=== PATIENT | female | born 1995 | race Caucasian/White ===

== ENCOUNTER 2017-02-08 07:56 | Emergency (ER) | payer OTHER ==
[2017-02-08] MEDS ORDERED: Zofran 4 MG/2 ML VIAL IV ONE (08:19)
[2017-02-08] MEDS ORDERED: Sodium Chloride 0.9% 1000 ML 1,000 ML IV SCH (08:30)
--- NOTE | 2017-02-08 08:30 | ERPHSYRPT ---
- History of Present Illness Time Seen by Provider: 02/08/17 08:15 Historian: patient Exam Limitations: clinical condition Patient Subjective Stated Complaint: PT REPORTS LOW RIGHT ABD PAIN BEGINNING RIGO 4 TO 5 HRS AGO-STATES THAT PAIN RADIATES TO HER BACK-REPORTS A CLEAR FOUL SMELLING VAGINAL DISCHARGE-DENIES DIFFICULTY WITH URIANTION Triage Nursing Assessment: PT PINK WARM ET DRY-ABD NONTENDER TO PALP-PT DENIES REBOUND TENDERNESS-BOWEL SOUNDS PRESENT-RESP EASY ET NONLABORED Physician History: PATIENT HISTORY OF SVT, COMPLAINS OF FREQUENCY OF URINATION, URGENCY OVER THE PAST 2 DAYS, ONSET OF RIGHT LOWER ABDOMINAL PAINS OVER 5 HOURS ASSOCIATED WITH A VAGINAL DISCHARGE. DENIES FEVER, NAUSEA OR EMESIS. Timing/Duration: yesterday Activities at Onset: none Quality: sharpness Abdominal Pain Onset Location: RLQ Pain Radiation: no radiation Severity of Pain-Max: moderate Severity of Pain-Current: moderate Modifying Factors: Improves With: nothing, urinating Previous symptoms: no prior history Allergies/Adverse Reactions: penicillin G Allergy (Intermediate, Verified 02/08/17 08:11) Hives Home Medications: No Home Meds 1 ea UD 02/08/17 [History] Hx Tetanus, Diphtheria Vaccination/Date Given: No Hx Influenza Vaccination/Date Given: No Hx Pneumococcal Vaccination/Date Given: No Immunizations Up to Date: Yes - Review of Systems Constitutional: No Fever, No Chills Eyes: No Symptoms Ears, Nose, & Throat: No Symptoms Respiratory: No Symptoms, No Cough, No Dyspnea Cardiac: No Chest Pain, No Edema, No Syncope Abdominal/Gastrointestinal: Abdominal Pain, No Nausea, No Vomiting, No Diarrhea Genitourinary Symptoms: Frequency, Urgency, Vaginal Discharge, No Dysuria Musculoskeletal: No Symptoms, No Back Pain, No Neck Pain Skin: No Rash Neurological: No Dizziness, No Focal Weakness, No Sensory Changes Psychological: No Symptoms Endocrine: No Symptoms All Other Systems: Reviewed and Negative - Past Medical History Pertinent Past Medical History: No Cardiac History: Arrhythmia (SVT) - Past Surgical History Past Surgical History: Yes - Social History Smoking Status: Current every day smoker How long have you smoked: YRS Exposure to second hand smoke: Yes Drug Use: none Patient Lives Alone: No - Female History Hx Last Menstrual Period: DEPO - Nursing Vital Signs Nursing Vital Signs: Initial Vital Signs Temperature 98.1 F Temperature Source Oral Pulse Rate 86 Respiratory Rate 22 Blood Pressure [Right Arm] 118/68 Pain Intensity 2 - Physical Exam General Appearance: no apparent distress, alert Eye Exam: PERRL/EOMI, eyes nml inspection Ears, Nose, Throat Exam: normal ENT inspection, pharynx normal, moist mucous membranes Neck Exam: normal inspection, non-tender, supple, full range of motion Respiratory Exam: normal breath sounds, lungs clear, No respiratory distress Cardiovascular Exam: regular rate/rhythm, normal heart sounds Gastrointestinal/Abdomen Exam: soft, normal bowel sounds, tenderness (RLQ TENDERNESS, NO GUARDING), No mass Pelvic Exam: normal external exam, vaginal discharge (THERE IS NO BLOOD IN THE VAGINAL VAULT, RIGHT ADNEXA TENDERNESS, NO CERVICAL MOTION TENDERNESS, NORMAL UTERINE SIZE) Back Exam: normal inspection, normal range of motion, CVA tenderness (RIGHT CVA TENDERNESS MODERATE), No vertebral tenderness Extremity Exam: normal inspection, normal range of motion, pelvis stable Neurologic Exam: alert, oriented x 3, cooperative, normal mood/affect, nml cerebellar function, sensation nml, No motor deficits Skin Exam: normal color, warm, dry SpO2 Interpretation: normal SpO2: 100 Oxygen Delivery: Room Air - CT Exams Abdomen/Pelvis CT Interpretation: Discussed w/radiologist (THERE IS AN ABNORMAL UTERUS WITH NUMEROUS MYOMETRIAL SERPIGINOUS/TORTUOUS VESSELS AND BILATERALY DISTENDED OVARIAN VEINS. R/O UTERINE AV MALFORMATION VERSUS PELVIC CONGESTION SYNDROME) Ordered Tests: Active Orders 24 hr Category Date Time Status Clean Catch Urine Specimen STAT Care 02/08/17 08:19 Active IV Insertion STAT Care 02/08/17 08:19 Active Pelvic Exam Assist STAT Care 02/08/17 08:48 Active ABDOMEN AND PELVIS W CONTRAST [CT] Stat Exams 02/08/17 08:20 Completed AMYLASE Stat Lab 02/08/17 08:30 Completed BLOOD CULTURE Stat Lab 02/08/17 08:35 Received BMP Stat Lab 02/08/17 08:30 Completed CBC W DIFF Stat Lab 02/08/17 08:30 Completed CULTURE,URINE Stat Lab 02/08/17 08:30 Received HCG,QUALITATIVE URINE Stat Lab 02/08/17 08:47 Completed LIPASE Stat Lab 02/08/17 08:30 Completed UA W/ MICROSCOPIC Stat Lab 02/08/17 08:30 Completed Wet Prep Stat Lab 02/08/17 08:30 Completed Medication Summary Generic Name Dose Route Start Last Admin Trade Name Freq PRN Reason Stop Dose Admin Sodium Chloride 1,000 mls @ 500 mls/hr 02/08/17 08:30 02/08/17 08:41 Sodium Chloride 0.9% 1000 Ml IV 03/10/17 08:29 500 mls/hr .Q2H PHILIP Administration Discontinued Medications Generic Name Dose Route Start Last Admin Trade Name Keely PRN Reason Stop Dose Admin Fentanyl Citrate 100 mcg 02/08/17 08:45 02/08/17 08:53 Sublimaze 100 Mcg/2 Ml IV 02/08/17 08:46 100 mcg STAT ONE Administration Fentanyl Citrate Confirm 02/08/17 08:50 Sublimaze 100 Mcg/2 Ml Administered 02/08/17 08:51 Dose 100 mcg .ROUTE .STK-MED ONE Sodium Chloride Confirm 02/08/17 08:37 Sodium Chloride 0.9% 1000 Ml Administered 02/08/17 08:38 Dose 1,000 mls @ ud .ROUTE .STK-MED ONE Sodium Chloride Confirm 02/08/17 08:50 Sodium Chloride 0.9% 1000 Ml Administered 02/08/17 08:51 Dose 1,000 mls @ ud .ROUTE .STK-MED ONE Ondansetron HCl 4 mg 02/08/17 08:19 02/08/17 08:41 Zofran 4 Mg/2 Ml Vial IV 02/08/17 08:20 4 mg STAT ONE Administration Ondansetron HCl Confirm 02/08/17 08:37 Zofran 4 Mg/2 Ml Vial Administered 02/08/17 08:38 Dose 4 mg .ROUTE .STK-MED ONE Lab/Rad Data: Laboratory Result Diagrams 02/08/17 08:30 02/08/17 08:30 Laboratory Results 02/08/17 02/08/17 02/08/17 Range/Units 08:47 08:30 08:30 WBC (4.0-10.5) K/mm3 RBC (4.1-5.4) M/mm3 Hgb (12.0-16.0) gm/dl Hct (35-47) % MCV (78-100) fl MCH (26-32) pg MCHC (32-36) g/dl RDW (11.5-14.0) % Plt Count (150-450) K/mm3 MPV (6-9.5) fl Gran % (36.0-66.0) % Lymphocytes % (24.0-44.0) % Monocytes % (0.0-12.0) % Eosinophils % (0.00-5.0) % Basophils % (0.0-0.4) % Basophils # (0-0.4) Sodium 145 (136-145) mEq/L Potassium 3.3 L (3.5-5.1) mEq/L Chloride 109 H (98-107) mEq/L Carbon Dioxide 26.3 (21-32) mEq/L Anion Gap 13.3 (5-15) MEQ/L BUN 10 (9-20) mg/dL Creatinine 0.86 (0.55-1.30) mg/dl Estimated GFR > 60 ML/MIN Glucose 95 (70-110) MG/DL Calcium 9.1 (8.5-10.1) mg/dL Amylase 48 (25-115) U/L Lipase 159 (73-393) U/L Ur Collection Type VOID Urine Color YELLOW (YELLOW) Urine Appearance CLEAR (CLEAR) Urine pH 6.0 (5-6) Ur Specific [place] 1.015 (1.005-1.025) Urine Protein NEGATIVE (Negative) Urine Glucose (UA) NEGATIVE (NEGATIVE) mg/dL Urine Ketones NEGATIVE (NEGATIVE) Urine Nitrite NEGATIVE (NEGATIVE) Urine Bilirubin NEGATIVE (NEGATIVE) Urine Urobilinogen 0.2 (0-1) mg/dL Urine WBC (Auto) TRACE (NEGATIVE) Urine RBC (Auto) NEGATIVE (0-5) Kaiden/ul Urine Microscopic WBC 2-5 (0-5) /HPF Ur Epithelial Cells FEW (FEW) /HPF Urine Bacteria FEW (NEGATIVE) /HPF Urine HCG, Qual NEGATIVE (Negative) WBC (Wet Prep) Rare RBC (Wet Prep) None Seen Epi Cells (Wet Prep) Rare Bacteria (Wet Prep) Rare Clue Cells (Wet Prep) None Seen Trichomonas (Wet Prep) None Seen Budding Yeast (Wet Prp) None Seen Chlamydia DNA (LCR) N.gonorrhoeae Ampl DNA Specimen Received 02/08/17 0820 02/08/17 02/08/17 Range/Units 08:30 08:19 WBC 9.8 (4.0-10.5) K/mm3 RBC 5.11 (4.1-5.4) M/mm3 Hgb 15.1 (12.0-16.0) gm/dl Hct 44.5 (35-47) % MCV 87.1 (78-100) fl MCH 29.5 (26-32) pg MCHC 33.9 (32-36) g/dl RDW 12.9 (11.5-14.0) % Plt Count 313 (150-450) K/mm3 MPV 9.9 H (6-9.5) fl Gran % 54.9 (36.0-66.0) % Lymphocytes % 35.6 (24.0-44.0) % Monocytes % 6.7 (0.0-12.0) % Eosinophils % 2.0 (0.00-5.0) % Basophils % 0.8 (0.0-0.4) % Basophils # 0.08 (0-0.4) Sodium (136-145) mEq/L Potassium (3.5-5.1) mEq/L Chloride (98-107) mEq/L Carbon Dioxide (21-32) mEq/L Anion Gap (5-15) MEQ/L BUN (9-20) mg/dL Creatinine (0.55-1.30) mg/dl Estimated GFR ML/MIN Glucose (70-110) MG/DL Calcium (8.5-10.1) mg/dL Amylase (25-115) U/L Lipase (73-393) U/L Ur Collection Type Urine Color (YELLOW) Urine Appearance (CLEAR) Urine pH (5-6) Ur Specific [place] (1.005-1.025) Urine Protein (Negative) Urine Glucose (UA) (NEGATIVE) mg/dL Urine Ketones (NEGATIVE) Urine Nitrite (NEGATIVE) Urine Bilirubin (NEGATIVE) Urine Urobilinogen (0-1) mg/dL Urine WBC (Auto) (NEGATIVE) Urine RBC (Auto) (0-5) Kaiden/ul Urine Microscopic WBC (0-5) /HPF Ur Epithelial Cells (FEW) /HPF Urine Bacteria (NEGATIVE) /HPF Urine HCG, Qual (Negative) WBC (Wet Prep) RBC (Wet Prep) Epi Cells (Wet Prep) Bacteria (Wet Prep) Clue Cells (Wet Prep) Trichomonas (Wet Prep) Budding Yeast (Wet Prp) Chlamydia DNA (LCR) NEGATIVE N.gonorrhoeae Ampl DNA NEGATIVE Specimen Received - Progress Progress: improved Progress Note: 02/08/17 08:31 PATIENT GIVEN IV NORMAL SALINE 500LML/HR. ZOFRAN 4MG, FENTANYL 0.1MG IV 02/08/17 11:19 PATIENT ADMITS TO HAVING PELVIC PAIN FOR YEARS Counseled pt/family regarding: lab results, diagnosis, need for follow-up - Departure Time of Disposition: 11:22 Departure Disposition: Home Clinical Impression: PELVIC PAIN, PELVIC CONGESTION SYNDROME Condition: Stable Critical Care Time: No Additional Instructions: CALL YOUR FAMILY PHYSICIAN TODAY TO SCHEDULE A FOLLOWUP APPOINTMENT FOR EVALUATION, TREATMENT AND REVIEW OF CT SCAN RESULTS. TORADOL 10MG EVERY 6 HOURS FOR MILD TO MODERATE PAIN. NORCO 10/325 EVERY 4 HOURS FOR SEVERE PAIN. Prescriptions: Hydrocodone/APAP 10/325 mg [[place] 10/325 MG Tablet] 1 tab PO Q4H PRN PRN # 16 tablet PRN Reason: Pain Ketorolac Tromethamine [Toradol] 10 mg PO Q6H PRN PRN #20 tablet PRN Reason: Pain
[2017-02-08] MEDS ORDERED: Sodium Chloride 0.9% 1000 ML 1,000 ML ONE (08:37)
[2017-02-08] MEDS ORDERED: Zofran 4 MG/2 ML VIAL ONE (08:37)
[2017-02-08] MEDS ORDERED: SUBLIMAZE 100 MCG/2 ML IV ONE (08:45)
[2017-02-08 08:48] LABS: BASOPHIL % 0.8 % (0.0-0.4); Granulocytes % 54.9 % (36.0-66.0); Lymphocytes % 35.6 % (24.0-44.0); Mean Cell Volume 87.1 fl (78-100); Mean Corpuscular Hemoglobin 29.5 pg (26-32); Mean Platelet Volume 9.9 fl (6-9.5); Monocytes % 6.7 % (0.0-12.0); Platelet Count 313 K/mm3 (150-450); Red Blood Count 5.11 M/mm3 (4.1-5.4); Red Cell Distribution Width 12.9 % (11.5-14.0); White Blood Count 9.8 K/mm3 (4.0-10.5)
[2017-02-08] MEDS ORDERED: SUBLIMAZE 100 MCG/2 ML ONE (08:50)
[2017-02-08] MEDS ORDERED: Sodium Chloride 0.9% 1000 ML 0 ML ONE (08:50)
[2017-02-08 09:13] LABS: ANION GAP 13.3 MEQ/L (5-15); BLOOD UREA NITROGEN 10 mg/dL (9-20); CHLORIDE 109 mEq/L (98-107); Carbon Dioxide 26.3 mEq/L (21-32); Glucose 95 MG/DL (70-110); LIPASE 159 U/L (73-393); Potassium 3.3 mEq/L (3.5-5.1); SODIUM 145 mEq/L (136-145)
[2017-02-08 09:14] LABS: Bacteria FEW /HPF (NEGATIVE); COMPLETE URINE MICROSCOPIC? YES; Collection Type VOID; Epithelial Cells FEW /HPF (FEW)
[2017-02-08 09:15] LABS: Bacteria Rare; Clue Cells None Seen; Trichomonas None Seen; Yeast None Seen
[2017-02-08 10:49] LABS: CHLAMYDIA DNA NEGATIVE
--- NOTE | 2017-02-08 10:56 | XRAY ---
Indication: Right lower quadrant pain. Multiple contiguous axial images obtained through the abdomen and pelvis using 80 cc Isovue 370 contrast only. Comparison: None Lung bases demonstrates partially visualized 5 mm nodule on the left probably granulomatous in this demographic. No infiltrate, consolidation, or effusion. Heart is not enlarged. Noncontrasted stomach and bowel loops appear nonobstructed. Appendix not seen. No free fluid/air. Myometrium of the uterus demonstrates numerous serpiginous/tortuous vessels. Both ovarian veins are also abnormally dilated up to 7 mm. Primary concern is for uterine arteriovenous malformation versus pelvic congestion syndrome. Remaining liver, gallbladder, pancreas, spleen, adrenal glands, kidneys, ureters, bladder, and aorta appear normal in CT appearance and attenuation. No pathologic retroperitoneal lymphadenopathy. Osseous structures intact. Impression: 1. Abnormal uterus with numerous myometrial serpiginous/tortuous vessels and bilaterally distended ovarian veins. Rule out uterine AV malformation versus pelvic congestion syndrome. 2. Incompletely visualized 5 mm nodule in the left lung base probably granulomatous in this demographic. CTDI 8.07
[2017-02-08 11:32] VITALS: BP 110/64; PULSE 81; O2SAT 98
== END 2017-02-08 11:31 | disposition home or self-care (01) ==
LOC: ED 07:56
DX: R10.2 Pelvic and perineal pain (principal); N94.89 Other specified conditions associated with female genital organs and menstrual cycle; R10.31 Right lower quadrant pain; N89.8 Other specified noninflammatory disorders of vagina; R39.15 Urgency of urination; R35.0 Frequency of micturition; Z72.0 Tobacco use
CPT/HCPCS: 36000; 36415; 74177; 80048; 81000; 82150; 83690; 84703; 85025; 87040; 87086; 87210; 87490; 87590; 96360; 96361; 96374; 96375; 99285; J2405; J3010

== ENCOUNTER 2019-06-02 23:03 | Emergency (ER) | payer OTHER ==
--- NOTE | 2019-06-02 23:21 | ERPHSYRPT ---
- History of Present Illness Time Seen by Provider: 06/02/19 23:10 Source: patient, EMS Exam Limitations: clinical condition Physician History: 23 y/o white female presents with sudden onset of throat tightening, coughing, gagging then vomiting. pt thinks she may have aspirated. pt was on bowel prep for a colonoscopy tomorrow. no other known exposures. pt is a smoker. ems called. upon arrival pt was wheezing and coughing. pts room air oxygenation was 82%. EMS placed an IV, gave epinephrine, albuterol neb tx, solumedrol, and benadryl. sx improved but still anxious and shaking. Timing/Duration: today Activities at Onset: none Severity of Dyspnea-Max: moderate Severity of Dyspnea-Current: moderate Possible Cause: no prior episodes Modifying Factors: Improves With: albuterol nebulizer, coughing, oxygen Associated Symptoms: anxiety, cough, wheezing Allergies/Adverse Reactions: penicillin G Allergy (Intermediate, Verified 06/02/19 23:28) Hives Hx Tetanus, Diphtheria Vaccination/Date Given: No Hx Influenza Vaccination/Date Given: No Hx Pneumococcal Vaccination/Date Given: No - Review of Systems Constitutional: No Symptoms Eyes: No Symptoms Ears, Nose, & Throat: No Symptoms Respiratory: Dyspnea, Wheezing Cardiac: No Symptoms, No Chest Pain Abdominal/Gastrointestinal: No Symptoms, Vomiting, No Abdominal Pain, No Nausea Genitourinary Symptoms: No Symptoms Musculoskeletal: No Symptoms Skin: No Symptoms Neurological: No Symptoms Psychological: No Symptoms Endocrine: No Symptoms Hematologic/Lymphatic: No Symptoms Immunological/Allergic: No Symptoms All Other Systems: Reviewed and Negative - Past Medical History Pertinent Past Medical History: No Neurological History: No Pertinent History ENT History: No Pertinent History Cardiac History: Arrhythmia (SVT) Respiratory History: No Pertinent History Endocrine Medical History: No Pertinent History Musculoskeletal History: No Pertinent History GI Medical History: No Pertinent History History: No Pertinent History Psycho-Social History: No Pertinent History Female Reproductive Disorders: No Pertinent History - Past Surgical History Past Surgical History: Yes Neuro Surgical History: No Pertinent History Cardiac: No Pertinent History Respiratory: No Pertinent History Gastrointestinal: No Pertinent History Genitourinary: No Pertinent History Musculoskeletal: No Pertinent History Female Surgical History: No Pertinent History - Social History Smoking Status: Current every day smoker How long have you smoked: YRS Exposure to second hand smoke: Yes Drug Use: none Patient Lives Alone: No - Nursing Vital Signs Nursing Vital Signs: Initial Vital Signs Temperature 97.9 F 06/02/19 23:04 Pulse Rate 90 06/02/19 23:04 Respiratory Rate 20 06/02/19 23:04 Blood Pressure 133/77 06/02/19 23:04 O2 Sat by Pulse Oximetry 95 06/02/19 23:04 Pain Scale Pain Intensity 2 - Physical Exam General Appearance: mild distress, alert, anxiety, thin Eye Exam: PERRL/EOMI, eyes nml inspection Ears, Nose, Throat Exam: hearing grossly normal, normal ENT inspection Neck Exam: normal inspection, non-tender, supple, full range of motion Respiratory Exam: normal breath sounds, lungs clear, airway intact, No chest tenderness, No respiratory distress Cardiovascular/Chest Exam: normal heart sounds, regular rate/rhythm, normal peripheral pulses Abdominal/Gastrointestinal Exam: soft, normal bowel sounds, No tenderness Rectal Exam: not done Extremity Exam: non-tender, normal range of motion, normal inspection Neurologic Exam: alert, oriented x 3, cooperative, web press roll tender II-XII nml as tested Skin Exam: normal color, warm, dry Lymphatic Exam: No adenopathy SpO2 Interpretation: normal SpO2: 95 - Course EKG Interpreted by Me: RATE (79), NORMAL AXIS, NORMAL INTERVALS, NORMAL QRS, Non -specific ST Changes, Other (no comparison ekg) Ordered Tests: Active Orders 24 hr Category Date Time Status Subsurface Augmentee Operator STAT Care 06/02/19 23:26 Active EKG-ER Only STAT Care 06/02/19 23:24 Active Pulse Oximetry (ED) STAT Care 06/02/19 23:24 Active CHEST 1 VIEW (PORTABLE) Stat Exams 06/02/19 23:25 Taken CBC W DIFF Stat Lab 06/02/19 23:40 Completed CMP Stat Lab 06/02/19 23:40 Completed HCG,QUALITATIVE URINE Stat Lab 06/03/19 00:29 Completed Lactic Acid Stat Lab 06/02/19 23:40 Completed NT PRO BNP Stat Lab 06/02/19 23:40 Completed TROPONIN Q3H Lab 06/02/19 23:40 Completed TROPONIN Q3H Lab 06/03/19 02:30 Ordered TROPONIN Q3H Lab 06/03/19 05:30 Ordered TROPONIN Q3H Lab 06/03/19 08:30 Ordered TROPONIN Q3H Lab 06/03/19 11:30 Ordered UA W/RFX UR CULTURE Stat Lab 06/03/19 00:29 Completed Medication Summary Discontinued Medications Generic Name Dose Route Start Last Admin Trade Name Keely PRN Reason Stop Dose Admin Famotidine 20 mg 06/02/19 23:24 06/02/19 23:39 Pepcid 20 Mg Vial IV 06/02/19 23:25 20 mg STAT ONE Administration Famotidine Confirm 06/02/19 23:36 Pepcid 20 Mg Vial Administered 06/02/19 23:37 Dose 20 mg IV .STK-MED ONE Lorazepam 0.5 mg 06/02/19 23:26 06/02/19 23:39 Ativan 2 Mg/1 Ml Vial IV 06/02/19 23:27 0.5 mg STAT ONE Administration Lorazepam Confirm 06/02/19 23:36 Ativan 2 Mg/1 Ml Vial Administered 06/02/19 23:37 Dose 2 mg .ROUTE .STK-MED ONE Potassium Chloride 10 meq 06/03/19 00:37 06/03/19 00:46 Klor Con 10 Meq PO 06/03/19 00:38 10 meq STAT ONE Administration Potassium Chloride Confirm 06/03/19 00:43 Klor Con 10 Meq Administered 06/03/19 00:44 Dose 10 meq PO .STK-MED ONE Lab/Rad Data: Laboratory Result Diagrams 06/02/19 23:40 06/02/19 23:40 Laboratory Results 06/03/19 06/03/19 06/02/19 Range/Units 00:29 00:29 23:40 WBC (4.0-10.5) K/mm3 RBC (4.1-5.4) M/mm3 Hgb (12.0-16.0) gm/dl Hct (35-47) % MCV (78-100) fl MCH (26-32) pg MCHC (32-36) g/dl RDW (11.5-14.0) % Plt Count (150-450) K/mm3 MPV (6-9.5) fl Gran % (36.0-66.0) % Eos # (Auto) (0-0.5) Absolute Lymphs (auto) (1.0-4.6) Absolute Monos (auto) (0.0-1.3) Lymphocytes % (24.0-44.0) % Monocytes % (0.0-12.0) % Eosinophils % (0.00-5.0) % Basophils % (0.0-0.4) % Absolute Granulocytes (1.4-6.9) Basophils # (0-0.4) Sodium (137-145) mmol/L Potassium (3.5-5.1) mmol/L Chloride (98-107) mmol/L Carbon Dioxide (22-30) mmol/L Anion Gap (5-15) MEQ/L BUN (7-17) mg/dL Creatinine (0.52-1.04) mg/dL Estimated GFR ML/MIN Glucose (74-106) mg/dL Lactic Acid (0.4-2.0) Calcium (8.4-10.2) mg/dL Total Bilirubin (0.2-1.3) mg/dL AST (14-36) U/L ALT (0-35) U/L Alkaline Phosphatase (38-126) U/L Troponin I < 0.012 (0.000-0.034) ng/mL NT-Pro-B Natriuret Pep (0-450) pg/mL Serum Total Protein (6.3-8.2) g/dL Albumin (3.5-5.0) g/dL Urine Color STRAW (YELLOW) Urine Appearance CLEAR (CLEAR) Urine pH 6.0 (5-6) Ur Specific [place] 1.004 (1.005-1.025) Urine Protein NEGATIVE (Negative) Urine Ketones NEGATIVE (NEGATIVE) Urine Blood NEGATIVE (0-5) Kaiden/ul Urine Nitrite NEGATIVE (NEGATIVE) Urine Bilirubin NEGATIVE (NEGATIVE) Urine Urobilinogen NEGATIVE (0-1) mg/dL Ur Leukocyte Esterase TRACE (NEGATIVE) Urine WBC (Auto) 3-5 (0-5) /HPF Urine RBC (Auto) NONE (0-2) /HPF U Epithel Cells (Auto) RARE (FEW) /HPF Urine Bacteria (Auto) NONE (NEGATIVE) /HPF Urine Mucus (Auto) SLIGHT (NEGATIVE) /HPF Urine Culture Reflexed NO (NO) Urine Glucose NEGATIVE (NEGATIVE) mg/dL Urine HCG, Qual NEGATIVE (Negative) 06/02/19 06/02/19 06/02/19 Range/Units 23:40 23:40 23:40 WBC 13.0 H (4.0-10.5) K/mm3 RBC 5.41 H (4.1-5.4) M/mm3 Hgb 16.4 H (12.0-16.0) gm/dl Hct 47.1 H (35-47) % MCV 87.1 (78-100) fl MCH 30.3 (26-32) pg MCHC 34.8 (32-36) g/dl RDW 12.6 (11.5-14.0) % Plt Count 311 (150-450) K/mm3 MPV 10.0 H (6-9.5) fl Gran % 58.1 (36.0-66.0) % Eos # (Auto) 0.26 (0-0.5) Absolute Lymphs (auto) 4.40 (1.0-4.6) Absolute Monos (auto) 0.71 (0.0-1.3) Lymphocytes % 33.9 (24.0-44.0) % Monocytes % 5.5 (0.0-12.0) % Eosinophils % 2.0 (0.00-5.0) % Basophils % 0.5 (0.0-0.4) % Absolute Granulocytes 7.55 H (1.4-6.9) Basophils # 0.07 (0-0.4) Sodium 141 (137-145) mmol/L Potassium 3.3 L (3.5-5.1) mmol/L Chloride 108 H (98-107) mmol/L Carbon Dioxide 20 L (22-30) mmol/L Anion Gap 16.1 H (5-15) MEQ/L BUN 9 (7-17) mg/dL Creatinine 0.71 (0.52-1.04) mg/dL Estimated GFR > 60.0 ML/MIN Glucose 100 (74-106) mg/dL Lactic Acid 1.7 (0.4-2.0) Calcium 10.4 H (8.4-10.2) mg/dL Total Bilirubin 1.00 (0.2-1.3) mg/dL AST 24 (14-36) U/L ALT 13 (0-35) U/L Alkaline Phosphatase 79 (38-126) U/L Troponin I (0.000-0.034) ng/mL NT-Pro-B Natriuret Pep 28.1 (0-450) pg/mL Serum Total Protein 8.4 H (6.3-8.2) g/dL Albumin 5.1 H (3.5-5.0) g/dL Urine Color (YELLOW) Urine Appearance (CLEAR) Urine pH (5-6) Ur Specific [place] (1.005-1.025) Urine Protein (Negative) Urine Ketones (NEGATIVE) Urine Blood (0-5) Kaiden/ul Urine Nitrite (NEGATIVE) Urine Bilirubin (NEGATIVE) Urine Urobilinogen (0-1) mg/dL Ur Leukocyte Esterase (NEGATIVE) Urine WBC (Auto) (0-5) /HPF Urine RBC (Auto) (0-2) /HPF U Epithel Cells (Auto) (FEW) /HPF Urine Bacteria (Auto) (NEGATIVE) /HPF Urine Mucus (Auto) (NEGATIVE) /HPF Urine Culture Reflexed (NO) Urine Glucose (NEGATIVE) mg/dL Urine HCG, Qual (Negative) - Progress Progress: improved Air Movement: good Progress Note: 06/03/19 00:27 cxr-no acute process. 06/03/19 00:30 pt states she is feeling much better and wants to go home Blood Culture(s) Obtained: No Antibiotics given: Yes Counseled pt/family regarding: lab results, diagnosis, need for follow-up, rad results - Departure Departure Disposition: Home Clinical Impression: Allergic reaction Condition: Stable Critical Care Time: No Referrals: DARCY HENRIQUEZ [COURTESY STAFF] - Additional Instructions: take over the counter benadryl 25mg orally 3 times daily for 4 days. return to ED if symptoms worsen. call your doctor/hospital about your colonoscopy early this morning to inform them of gerardo event and obtain further instructions Prescriptions: Azithromycin 250 mg [Zithromax 250 MG TABLET] 250 mg PO ZPACK #6 tablet Prednisone 5 mg [Deltasone 5 mg] 5 mg PO TID #12 tablet Ranitidine HCl [Zantac] 150 mg PO BID 5 Days #10 tablet
[2019-06-02] MEDS ORDERED: Pepcid 20 MG VIAL IV ONE ×2 (23:24→23:36)
[2019-06-02] MEDS ORDERED: Ativan 2 MG/1 ML VIAL IV ONE (23:26)
[2019-06-02] MEDS ORDERED: Ativan 2 MG/1 ML VIAL ONE (23:36)
[2019-06-02 23:44] LABS: BASOPHIL % 0.5 % (0.0-0.4); Basophil (Absolute #) 0.07 (0-0.4); Eosinophil (Absolute #) 0.26 (0-0.5); Granulocyte Absolute (ANC) 7.55 (1.4-6.9); Granulocytes % 58.1 % (36.0-66.0); Hematocrit 47.1 % (35-47); Hemoglobin 16.4 gm/dl (12.0-16.0); Lymphocytes % 33.9 % (24.0-44.0); Mean Cell Volume 87.1 fl (78-100); Mean Corpuscular Hemoglobin 30.3 pg (26-32); Mean Corpuscular Hgb Concent. 34.8 g/dl (32-36); Monocyte (Absolute #) 0.71 (0.0-1.3); Monocytes % 5.5 % (0.0-12.0); Platelet Count 311 K/mm3 (150-450); Red Blood Count 5.41 M/mm3 (4.1-5.4); Red Cell Distribution Width 12.6 % (11.5-14.0)
[2019-06-03 00:04] LABS: ALBUMIN 5.1 g/dL (3.5-5.0); ALKALINE PHOSPHATASE 79 U/L (38-126); ANION GAP 16.1 MEQ/L (5-15); BLOOD UREA NITROGEN 9 mg/dL (7-17); CHLORIDE 108 mmol/L (98-107); Calcium 10.4 mg/dL (8.4-10.2); Carbon Dioxide 20 mmol/L (22-30); Creatinine 1 0.71 mg/dL (0.52-1.04); Glucose 100 mg/dL (74-106); NT PRO BNP 28.1 pg/mL (0-450); Potassium 3.3 mmol/L (3.5-5.1); SGOT/AST 24 U/L (14-36); SGPT/ALT 13 U/L (0-35); SODIUM 141 mmol/L (137-145); Total Protein 8.4 g/dL (6.3-8.2)
[2019-06-03 00:31] LABS: Appearance CLEAR (CLEAR); Bilirubin NEGATIVE (NEGATIVE); Blood NEGATIVE Ery/ul (0-5); Epithelial Cells RARE /HPF (FEW); Glucose NEGATIVE (NEGATIVE); Ketones NEGATIVE (NEGATIVE); Leukocyte Esterase TRACE (NEGATIVE); Mucus SLIGHT /HPF (NEGATIVE); Nitrite NEGATIVE (NEGATIVE); Protein,Urine Dip NEGATIVE (Negative); Specific Gravity 1.004 (1.005-1.025); Urobilinogen NEGATIVE mg/dL (0-1)
[2019-06-03] MEDS ORDERED: Klor Con 10 MEQ PO ONE ×2 (00:37→00:43)
[2019-06-03 01:35] VITALS: BP 105/65; PULSE 78; O2SAT 98
--- NOTE | 2019-06-03 16:09 | XRAY ---
Exam: AP portable chest film from 06/02/2019. Comparison: Two-view chest from 10/03/2010. Indication: 23-year-old female with cough, shortness of breath, emesis. Findings: The heart size and contour are normal. The felicia and mediastinal structures appear unremarkable. The lungs are well expanded. No air space infiltrates, vascular congestion, pneumothorax, or pleural fluid is seen. I again see a mild lower thoracic dextroscoliosis centered at T10-T11. A metallic umbilical ring/ornament is seen. No other acute osseous process is seen. Impression: 1. No infiltrates to suggest focal pneumonia, pneumothorax, or other acute cardiopulmonary disease is seen. This represents no change from 10/03/2010. 2. I again see mild lower thoracic dextroscoliosis representing no significant change from 10/03/2010.
== END 2019-06-03 01:36 | disposition home or self-care (01) ==
LOC: ED 23:03
DX: K22.2 Esophageal obstruction (principal)
CPT/HCPCS: 36415; 71045; 80053; 81001; 83605; 83880; 84484; 84703; 85025; 85379; 93005; 93041; 94760; 96374; 96375; 99284; J2060; A9270-GY